=== PATIENT | male | born 1965 | race American Indian/Alaskan Native ===

== ENCOUNTER 2021-04-02 15:56 | Emergency (ER) | payer MEDICAID ==
[2021-04-02] MEDS ORDERED: SODIUM CHLORIDE 0.9% 1000 ML 1,000 ML IV ONE (17:02)
[2021-04-02 18:04] LABS: Hematocrit 33.9 % (35.5-45.6); Hemoglobin 10.8 gm/dl (11.8-15.2); Mean Corpuscular HGB Conc 32 % (32-34); Mean Corpuscular Volume 83 fl (84-94); Platelet Count 333 K/mm3 (140-440); Red Blood Count 4.07 M/mm3 (3.65-5.03); Red Cell Distribution Width 14.3 % (13.2-15.2)
[2021-04-02 18:25] LABS: Alanine Aminotransferase 20 units/L (7-56); Albumin 3.4 g/dL (3.9-5); Blood Urea Nitrogen 6 mg/dL (9-20); Calcium 8.7 mg/dL (8.4-10.2); Hemolysis Index 1
[2021-04-02 18:50] LABS: BUN/Creatinine Ratio 15
[2021-04-02 19:00] LABS: Band Neutrophils # (Manual) 0.1 K/mm3; RBC Morphology Normal; Total Cells Counted 100
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
[2021-04-02] MEDS ORDERED: ACETAMINOPHEN 500 MG TAB PO ONE (21:03)
[2021-04-02] MEDS ORDERED: oxyCODONE 5 MG TAB PO ONE (22:53)
[2021-04-03 03:11] VITALS: BP 138/85
== END 2021-04-03 01:30 | disposition home or self-care (01) ==
LOC: ED 15:56
DX: R73.9 Hyperglycemia, unspecified (principal); I10 Essential (primary) hypertension
CPT/HCPCS: 36415; 80053; 82805; 82962; 85007; 85025; 96360; 99284; J7030; Q0162

== ENCOUNTER 2021-04-06 13:18 | Emergency (ER) | payer MEDICAID ==
[2021-04-06 13:24] VITALS: BP 158/102
--- NOTE | 2021-04-06 14:36 | Emergency Department Report ---
ED Male HPI - General Chief complaint: Urogenital-Male Stated complaint: ABD PAIN, RECTUM PAIN,UNABLE TO URINATE SINCE YEST Time Seen by Provider: 04/06/21 14:27 Source: patient Mode of arrival: Ambulatory Limitations: No Limitations - History of Present Illness Initial comments: Patient presents with urinary retention. He states he has not been able to void in the last day. He came in for evaluation treatment because of suprapubic pain. He states that he feels bloated and distended. This is caused constipation. He has never had problems like this before. Has no fevers or chills per there is no cough congestion. No flank pain. There is no nausea or vomiting. He states that he did not have problems with urination previously. He has not been on any new medication. He does not know why this started. - Related Data Previous Rx's Medication Instructions Recorded Last Taken Type Phenazopyridine [Pyridium] 200 mg PO TID #9 tab 04/06/21 Unknown Rx cephALEXin [Keflex] 500 mg PO Q6HR #21 capsule 04/06/21 Unknown Rx Allergies Allergy/AdvReac Type Severity Reaction Status Date / Time No Known Allergies Allergy Unverified 04/02/21 16:10 ED Review of Systems ROS: Stated complaint: ABD PAIN, RECTUM PAIN,UNABLE TO URINATE SINCE YEST Other details as noted in HPI Comment: All other systems reviewed and negative Constitutional: denies: fever Eyes: denies: vision change ENT: denies: throat pain Respiratory: denies: cough Cardiovascular: denies: chest pain Endocrine: denies: unexplained weight loss Gastrointestinal: as per HPI Genitourinary: as per HPI Musculoskeletal: denies: back pain Skin: denies: rash Neurological: denies: headache Hematological/Lymphatic: denies: easy bruising ED Past Medical Hx - Past Medical History Previous Medical History?: No - Family History Family history: no significant - Medications Home Medications: Home Medications Medication Instructions Recorded Confirmed Last Taken Type Phenazopyridine [Pyridium] 200 mg PO TID #9 tab 04/06/21 Unknown Rx cephALEXin [Keflex] 500 mg PO Q6HR #21 capsule 04/06/21 Unknown Rx ED Physical Exam - General Limitations: No Limitations, Other (Pulse ox noted and normal) General appearance: alert, in distress (Moderate discomfort) - Head Head exam: Present: atraumatic, normocephalic - Eye Eye exam: Present: normal appearance, EOMI - ENT ENT exam: Present: normal orophraynx, normal external ear exam - Neck Neck exam: Present: normal inspection. Absent: meningismus - Respiratory Respiratory exam: Present: normal lung sounds bilaterally. Absent: respiratory distress - Cardiovascular Cardiovascular Exam: Present: normal rhythm, tachycardia - GI/Abdominal GI/Abdominal exam: Present: soft, tenderness (Suprapubic). Absent: guarding, rebound - Extremities Exam Extremities exam: Present: normal capillary refill - Back Exam Back exam: Absent: CVA tenderness (R), CVA tenderness (L) - Neurological Exam Neurological exam: Present: alert, oriented X3, CN II-XII intact, normal gait - Psychiatric Psychiatric exam: Present: normal affect, normal mood - Skin Skin exam: Present: warm, dry ED Course Vital Signs 04/06/21 13:23 Temperature 98.4 F Pulse Rate 102 H Respiratory 18 Rate Blood Pressure 158/102 [Right] O2 Sat by Pulse 98 Oximetry - Reevaluation(s) Reevaluation #1: 04/06/21 14:36 Umana catheter with lidocaine was ordered. Old records reviewed. Reevaluation #2: 04/06/21 16:41 Patient was not in urinary retention. Abdominal series was ordered. UA is still pending. Reevaluation #3: 04/06/21 17:56 UA and x-ray were noted. Patient was discharged. ED Medical Decision Making - Radiology Data Radiology results: report reviewed - Medical Decision Making Patient presented with lower abdominal pain and urinary frequency. He was found to have urinary tract infection. There is no evidence of urinary retention. Patient was treated empirically and symptomatically. There is no bowel obstruction. He does not have evidence of free air or perforation. He does not appear to be septic or toxic. Patient does not have blood in the urine. He does have glucose in the urine and he can follow-up with his regular doctor to check on the glucose in the urine. He does not appear to be profoundly dehydrated. He is not tachycardic or tachypneic. I do not believe this would represent DKA. Critical Care Time: No Critical care attestation.: If time is entered above; I have spent that time in minutes in the direct care of this critically ill patient, excluding procedure time. ED Disposition Clinical Impression: Cystitis, Glucosuria Disposition: HOME / SELF CARE / HOMELESS Is pt being admited?: No Condition: Stable Instructions: Urodynamic Testing, [id number] Additional Instructions: Drink plenty water. Avoid carbohydrates. Return for problems. Take the antibiotics. Follow-up with your regular doctor for recheck and further management. If you do not have a regular doctor, follow-up with the referral physician. Prescriptions: cephALEXin [Keflex] 500 mg PO Q6HR #21 capsule Phenazopyridine [Pyridium] 200 mg PO TID #9 tab Referrals: PRIMARY CAREMD [Primary Care Provider] - 3-5 Days BANDAR PHELPS MD [Staff Physician] - 3-5 Days
[2021-04-06] MEDS ORDERED: LIDOCAINE 2% UROJECT 10 ML JELLY UR ONE (15:00)
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
[2021-04-06 17:50] LABS: Bacteria,Urine 1+ /HPF (Negative); Bilirubin,Urine NEG (Negative); Blood,Urine MOD (Negative); Color,Urine Yellow (Yellow); Urobilinogen,Urine < 2.0 mg/dL (<2.0)
[2021-04-06 17:51] LABS: WBC,Urine > 182.0 /HPF (0.0-6.0)
[2021-04-06] MEDS ORDERED: cephALEXin 500 MG CAP PO ONE (17:55)
== END 2021-04-06 18:12 | disposition home or self-care (01) ==
LOC: ED 13:18
DX: N30.90 Cystitis, unspecified without hematuria (principal); R81 Glycosuria
CPT/HCPCS: 74022; 81001; 99283

== ENCOUNTER 2021-04-15 11:10 | Emergency (ER) | payer MEDICAID ==
[2021-04-15 11:15] VITALS: BP 149/117
--- NOTE | 2021-04-15 12:46 | Emergency Department Report ---
ED Extremity Problem HPI - General Chief complaint: Extremity Problem,Nontraumatic Time Seen by Provider: 04/15/21 12:19 Source: patient, EMS Mode of arrival: Stretcher Limitations: No Limitations - History of Present Illness Initial comments: 56-year-old -British male with past medical history of diabetes, lichen planus and hypertension presents to the ER today with complaints of bilateral foot pain, left worse than right. Patient states that has been having pain mainly to the plantar aspect of both feet for the past 2 to 3 days. Patient states that he lives at a personal long-term but he does admit that he do a lot of walking. He denies any injury to his feet recently. He states that they have been swelling. He denies any apparent erythema or bruising to the feet. He reports no associated chest pain or shortness of breath. He states that he has been taking Tylenol for the pain without much relief. He states that he has been compliant with his diabetic medication and has been checking his sugar and has been "all right". MD Complaint: joint swelling, joint paint -: days(s) (2-3) Severity scale (0 -10): 10 - Related Data Previous Rx's Medication Instructions Recorded Last Taken Type Phenazopyridine [Pyridium] 200 mg PO TID #9 tab 04/06/21 Unknown Rx cephALEXin [Keflex] 500 mg PO Q6HR #21 capsule 04/06/21 Unknown Rx Diclofenac 1% [Diclofenac 1% 1 applic TP QID #100 gm 04/15/21 Unknown Rx topical gel] traMADoL [Ultram] 50 mg PO Q4HR PRN #10 tablet 04/15/21 Unknown Rx Allergies Allergy/AdvReac Type Severity Reaction Status Date / Time No Known Allergies Allergy Unverified 04/15/21 11:15 ED Review of Systems ROS: Stated complaint: Other details as noted in HPI Comment: All other systems reviewed and negative Constitutional: denies: chills, fever Eyes: denies: eye pain, eye discharge, vision change ENT: denies: ear pain, throat pain Respiratory: denies: cough, shortness of breath, SOB with exertion, SOB at rest, wheezing Cardiovascular: denies: chest pain, palpitations Gastrointestinal: denies: abdominal pain, nausea, vomiting, diarrhea, constipation, hematemesis, melena, hematochezia Genitourinary: denies: urgency, dysuria Musculoskeletal: joint swelling, arthralgia. denies: back pain Skin: denies: rash, lesions, change in color, change in hair/nails, pruritus Neurological: denies: headache, weakness, numbness, paresthesias, confusion, abnormal gait, vertigo Psychiatric: denies: anxiety, depression, auditory hallucinations, visual hallucinations, homicidal thoughts ED Past Medical Hx - Past Medical History Previous Medical History?: Yes Hx Hypertension: Yes Hx Diabetes: Yes (TYPE II) Additional medical history: CHRONIC PAIN - Medications Home Medications: Home Medications Medication Instructions Recorded Confirmed Last Taken Type Phenazopyridine [Pyridium] 200 mg PO TID #9 tab 04/06/21 Unknown Rx cephALEXin [Keflex] 500 mg PO Q6HR #21 capsule 04/06/21 Unknown Rx Diclofenac 1% [Diclofenac 1% 1 applic TP QID #100 gm 04/15/21 Unknown Rx topical gel] traMADoL [Ultram] 50 mg PO Q4HR PRN #10 tablet 04/15/21 Unknown Rx ED Physical Exam - General Limitations: No Limitations General appearance: alert, in no apparent distress, other (Disheveled appearing) - Head Head exam: Present: atraumatic, normocephalic, normal inspection - Eye Eye exam: Present: normal appearance, PERRL, EOMI Pupils: Present: normal accommodation - Respiratory Respiratory exam: Present: normal lung sounds bilaterally. Absent: respiratory distress, wheezes, rales, rhonchi - Cardiovascular Cardiovascular Exam: Present: regular rate, normal rhythm, normal heart sounds - GI/Abdominal GI/Abdominal exam: Present: soft. Absent: distended, tenderness, guarding, rebound - Extremities Exam Extremities exam: Present: full ROM, tenderness (Tenderness to palpation to the plantar aspect of both feet, the left more so than the right. ), normal capillary refill (and Dorsalis pedis pulse and posterior tibialis pulses normal and equal bilaterally), joint swelling (Mild swelling noted about the ankles and dorsal foot bilaterally.), other ( Patient does have thickened hyperpigmented toenails. Chronically appear lichen planus rash noted bilateral feet and lower extremity without signs of infection; no erythema or bruising. Patient has full range of motion of his toes, ankle and knees. ). Absent: pedal edema - Neurological Exam Neurological exam: Present: alert, oriented X3, CN II-XII intact, normal gait. Absent: motor sensory deficit - Psychiatric Psychiatric exam: Present: normal affect, normal mood - Skin Skin exam: Present: intact ED Course Vital Signs 04/15/21 11:12 Temperature 99.0 F Pulse Rate 98 H Respiratory 16 Rate Blood Pressure 149/117 [Left] O2 Sat by Pulse 98 Oximetry ED Medical Decision Making - Medical Decision Making 56-year-old -British male with past medical history of diabetes, lichen planus and hypertension presents to the ER today with complaints of bilateral foot pain, left worse than right. Patient states that has been having pain mainly to the plantar aspect of both feet for the past 2 to 3 days. Patient states that he lives at a personal long-term but he does admit that he do a lot of walking. He denies any injury to his feet recently. He states that they have been swelling. He denies any apparent erythema or bruising to the feet. He reports no associated chest pain or shortness of breath. He states that he has been taking Tylenol for the pain without much relief. He states that he has been compliant with his diabetic medication and has been checking his sugar and has been "all right". 1253: Examination patient feet does not suggest septic joint, significant wound infection, cellulitis, acute arterial occlusion, and I also do not suspect DVT as patient has no current risk factors for DVT, nor does this appears related to congestive heart failure or any other acute emergent conditions warranting testing at this time. Patient will need to follow-up with podiatry good foot care. He'll be given medication to help his pain. Recommend that he elevates his foot as often as possible. He is not toxic or ill-appearing. He is neurologically intact. He is hemodynamically stable. Patient stable at time of discharge. Critical care attestation.: If time is entered above; I have spent that time in minutes in the direct care of this critically ill patient, excluding procedure time. ED Disposition Clinical Impression: Foot pain, bilateral Disposition: HOME / SELF CARE / HOMELESS Is pt being admited?: No Does the pt Need Aspirin: No Condition: Stable Instructions: Foot Pain Additional Instructions: I recommend that you follow-up with the mine car mechanic listed on your discharge instructions with your PCP for further evaluation of your foot pain. Take the tramadol as prescribed to help your pain. Elevate your foot as often as possible. Return to the ER if any symptoms worsens in any way. Prescriptions: Diclofenac 1% [Diclofenac 1% topical gel] 1 applic TP QID #100 gm traMADoL [Ultram] 50 mg PO Q4HR PRN #10 tablet PRN Reason: Pain Referrals: NBA KIM DPM [Staff Physician] - 3-5 Days Time of Disposition: 12:49
[2021-04-15] MEDS ORDERED: traMADol 50 MG TAB PO ONE (12:47)
== END 2021-04-15 14:33 | disposition home or self-care (01) ==
LOC: ED 11:10
DX: M79.671 Pain in right foot (principal); M79.672 Pain in left foot; I10 Essential (primary) hypertension; E11.9 Type 2 diabetes mellitus without complications; G89.29 Other chronic pain; Z79.899 Other long term (current) drug therapy
CPT/HCPCS: 99283

== ENCOUNTER 2021-08-08 19:18 | Emergency (ER) | payer MEDICAID ==
[2021-08-09] MEDS ORDERED: GABAPENTIN 100 MG CAP PO ONE (07:56)
[2021-08-09] MEDS ORDERED: traMADol 50 MG TAB PO ONE (07:56)
--- NOTE | 2021-08-09 08:00 | Emergency Department Report ---
ED Rash HPI - HPI Chief Complaint: Skin/Abscess/Foreign Body Stated Complaint: LESIONS Time Seen by Provider: 08/09/21 07:55 Location: Upper Extremities Suspected Cause: Other Rash Symptoms: Yes Itching, No Facial Swelling, No Tongue/Oral Swelling, No Breathing Difficulties, No Choking Sensation, No Wheezing/Dyspnea, No Peeling, No Blistering, No Fever, No Lightheaded, No Malaise, No Myalgias Severity: severe Other History: 56-year-old male comes to the ER last night, planing of stinging and itching of his upper extremity chronic lesions. He states that he developed these lesions from lisinopril. He states in 2014 he had a stroke and when he came out of, he had the lesions. He had been told it was from the lisinopril. They are all over his body but worse on his arms. He comes in with itching and stinging of the lesions tonight. He has no drainage. There is no fever. He has no hypotension or tachycardia. He states that he lives in a senior care. He is ambulatory to fast track in no acute distress. He cannot remember the name of his doctor. He does see a doctor in [place] because he was recently diagnosed with a left lower extremity blood clot. He states that he takes Eliquis for this. Patient denies any chest pain or shortness of breath. He is ambulatory without difficulty. He has no swelling of his extremities. Other home medications include gabapentin home, a steroid cream and tramadol. ED Review of Systems ROS: Stated complaint: LESIONS Other details as noted in HPI Comment: All other systems reviewed and negative ED Past Medical Hx - Past Medical History Hx Hypertension: Yes Hx CVA: Yes Hx Diabetes: Yes (TYPE II) Hx Deep Vein Thrombosis: Yes (Left lower extremity) Additional medical history: CHRONIC PAIN, DVT left lower extremity - Surgical History Past Surgical History?: Yes - Family History Family history: no significant - Social History Smoking Status: Never Smoker Substance Use Type: Alcohol - Medications Home Medications: Home Medications Medication Instructions Recorded Confirmed Last Taken Type Phenazopyridine [Pyridium] 200 mg PO TID #9 tab 04/06/21 Unknown Rx cephALEXin [Keflex] 500 mg PO Q6HR #21 capsule 04/06/21 Unknown Rx Diclofenac 1% [Diclofenac 1% 1 applic TP QID #100 gm 04/15/21 Unknown Rx topical gel] traMADoL [Ultram] 50 mg PO Q4HR PRN #10 tablet 04/15/21 Unknown Rx Rash Exam - Exam General: Vital signs noted. No distress. Alert and acting appropriately. Heart rate on provider exam 88. HEENT: No Periorbital Edema, No Conjuctival Injection, No Chemosis, No Perioral Edema, No Tongue Edema, No Uvular Edema, No Compromised Airway, No Drooling Lungs: Yes Good Air Exchange (Normal Breath Sounds), No Wheezes, No Ronchi, No Stridor, No Cough, No Labored Respirations, No Retractions, No Use of Accessory Muscles, No Other Abnormal Lung Sounds Heart: Yes Regular, No Murmur Skin: No Other Other: Positive: Abdomen Normal, Neurologic Normal, Musculoskeletal Normal ED Course Vital Signs 08/08/21 20:30 Temperature 99.5 F Pulse Rate 105 H Respiratory 18 Rate Blood Pressure 132/91 O2 Sat by Pulse 97 Oximetry ED Medical Decision Making - Medical Decision Making Vital Signs 08/08/21 20:30 Temperature 99.5 F Pulse Rate 105 H Respiratory 18 Rate Blood Pressure 132/91 O2 Sat by Pulse 97 Oximetry Wound care provided. Wounds cleaned with Betadine and saline, Vaseline applied and arm was wrapped in gauze. Patient medicated with tramadol and gabapentin. There is no drainage or redness associated with the rash. Patient is afebrile. Not concerned for infection. Patient educated on discharge plan of care including diet, activity, medications and follow-up with his PCP. He is asked for refill of his tramadol however, I told him that we do not give refills in the emergency room. He will have to see his PCP for that. When asked how he is getting home he says his sister told him she would call him an Uber. Patient discharged home with discharge plan of care including diet, medications, activity and follow-up. He verbalizes understanding. - Differential Diagnosis Acute on chronic rash Critical care attestation.: If time is entered above; I have spent that time in minutes in the direct care of this critically ill patient, excluding procedure time. ED Disposition Clinical Impression: Chronic pruritic rash in adult Disposition: HOME / SELF CARE / HOMELESS Is pt being admited?: No Does the pt Need Aspirin: No Condition: Stable Instructions: Wound Care, Adult Additional Instructions: Wound care as instructed. Continue home medications. Follow-up with your primary care for refill of your tramadol. Referrals: BROOK HUSSEIN MD [Staff Physician] - 3-5 Days Time of Disposition: 08:01
[2021-08-09 08:24] VITALS: BP 137/94
== END 2021-08-09 08:23 | disposition home or self-care (01) ==
LOC: ED 19:18
DX: L29.8 Other pruritus (principal); I10 Essential (primary) hypertension; E11.9 Type 2 diabetes mellitus without complications; G89.29 Other chronic pain
CPT/HCPCS: 99282

== ENCOUNTER 2021-08-22 21:24 | Emergency (ER) | payer MEDICAID ==
[2021-08-22 22:04] VITALS: BP 152/98
[2021-08-23] MEDS ORDERED: ACETAMINOPHEN 500 MG TAB PO ONE (04:56)
[2021-08-23] MEDS: IBUPROFEN 600 MG TAB PO ONE ×2 (05:02→05:04)
--- NOTE | 2021-08-23 05:24 | Emergency Department Report ---
ED General Adult HPI - General Chief complaint: Allergic Reaction Stated complaint: ALLERGIC REACTION Source: patient, EMS Mode of arrival: Stretcher Limitations: No Limitations - History of Present Illness Initial comments: Patient is a 56-year-old -Chinese male with a history of hypertension, CVA, due to chronic ulcer [id number] diabetes, DVT and chronic pain due to chronic ulcers in upper and lower extremities bilaterally presents to the ED with complaint of acute exacerbation of his chronic pain for the last 1 week. Patient states that he has been taking Tylenol as needed for pain with no relief. Patient denies fever, chills, nausea and vomiting, dizziness, syncope, cough, traumatic injury, heavy lifting, chest pain or shortness of breath, num bness and tingling or weakness of lower and upper extremities bilaterally. MD Complaint: BILATERAL ARM AND LEG PAIN -: Gradual, month(s) (6) Location: upper extremity (Bilateral upper extremities due to chronic healing wounds), lower extremity (Bilateral lower extremities due to chronic wounds) Radiation: non-radiation Severity scale (0 -10): 6 Quality: aching, sharp Consistency: constant Improves with: none Worsens with: movement Associated Symptoms: denies other symptoms, other (Chronic wounds on upper and lower extremities). denies: confusion, chest pain, cough, diaphoresis, fever/chills, headaches, loss of appetite, malaise, nausea/vomiting, rash, seizure, shortness of breath, syncope, weakness Treatments Prior to Arrival: none - Related Data Previous Rx's Medication Instructions Recorded Last Taken Type Phenazopyridine [Pyridium] 200 mg PO TID #9 tab 04/06/21 Unknown Rx cephALEXin [Keflex] 500 mg PO Q6HR #21 capsule 04/06/21 Unknown Rx Diclofenac 1% [Diclofenac 1% 1 applic TP QID #100 gm 04/15/21 Unknown Rx topical gel] Acetaminophen [Tylenol] 500 mg PO Q6HR PRN #40 tablet 08/23/21 Unknown Rx Gabapentin 300 mg PO BID #90 cap 08/23/21 Unknown Rx traMADoL [Ultram 50 MG tab] 50 mg PO Q4HR PRN #10 tablet 08/23/21 Unknown Rx Allergies Allergy/AdvReac Type Severity Reaction Status Date / Time ibuprofen AdvReac Severe Swelling Verified 08/23/21 05:05 lisinopril AdvReac Intermediate Swelling Verified 08/23/21 05:05 ED Review of Systems ROS: Stated complaint: ALLERGIC REACTION Other details as noted in HPI Constitutional: denies: chills, fever Eyes: denies: eye pain, eye discharge, vision change ENT: denies: ear pain, throat pain Respiratory: denies: cough, shortness of breath, wheezing Cardiovascular: denies: chest pain, palpitations Endocrine: no symptoms reported Gastrointestinal: denies: abdominal pain, nausea, diarrhea Genitourinary: denies: urgency, dysuria Musculoskeletal: arthralgia (Bilateral upper and lower extremity pain). denies: back pain, joint swelling Skin: other (Diffusely with pain). denies: rash, lesions Neurological: denies: headache, weakness, paresthesias Psychiatric: denies: anxiety, depression Hematological/Lymphatic: denies: easy bleeding, easy bruising ED Past Medical Hx - Past Medical History Hx Hypertension: Yes Hx CVA: Yes Hx Diabetes: Yes (TYPE II) Hx Deep Vein Thrombosis: Yes (Left lower extremity) Additional medical history: CHRONIC PAIN, DVT left lower extremity - Social History Smoking Status: Never Smoker Substance Use Type: Alcohol - Medications Home Medications: Home Medications Medication Instructions Recorded Confirmed Last Taken Type Phenazopyridine [Pyridium] 200 mg PO TID #9 tab 04/06/21 Unknown Rx cephALEXin [Keflex] 500 mg PO Q6HR #21 capsule 04/06/21 Unknown Rx Diclofenac 1% [Diclofenac 1% 1 applic TP QID #100 gm 04/15/21 Unknown Rx topical gel] Acetaminophen [Tylenol] 500 mg PO Q6HR PRN #40 tablet 08/23/21 Unknown Rx Gabapentin 300 mg PO BID #90 cap 08/23/21 Unknown Rx traMADoL [Ultram 50 MG tab] 50 mg PO Q4HR PRN #10 tablet 08/23/21 Unknown Rx ED Physical Exam - General Limitations: No Limitations General appearance: alert, in no apparent distress - Head Head exam: Present: atraumatic, normocephalic, normal inspection - Eye Eye exam: Present: normal appearance, PERRL, EOMI Pupils: Present: normal accommodation - ENT ENT exam: Present: normal exam, normal orophraynx, mucous membranes moist, TM's normal bilaterally, normal external ear exam - Neck Neck exam: Present: normal inspection, full ROM. Absent: tenderness - Respiratory Respiratory exam: Present: normal lung sounds bilaterally. Absent: respiratory distress, wheezes, rales, rhonchi, chest wall tenderness, accessory muscle use, decreased breath sounds, prolonged expiratory - Cardiovascular Cardiovascular Exam: Present: normal rhythm, tachycardia, normal heart sounds. Absent: systolic murmur, diastolic murmur, rubs, gallop - GI/Abdominal GI/Abdominal exam: Present: soft, normal bowel sounds. Absent: tenderness, guarding, rebound, hyperactive bowel sounds, hypoactive bowel sounds, organomegaly, mass - Extremities Exam Extremities exam: Present: normal inspection, full ROM, tenderness (Diffuse bilateral upper and lower extremity tenderness due to chronic ulcerated wounds), normal capillary refill. Absent: pedal edema, joint swelling, calf tenderness - Back Exam Back exam: Present: normal inspection, full ROM. Absent: tenderness, CVA tenderness (R), CVA tenderness (L), muscle spasm, paraspinal tenderness, vertebral tenderness - Neurological Exam Neurological exam: Present: alert, oriented X3, CN II-XII intact, normal gait, reflexes normal - Psychiatric Psychiatric exam: Present: normal affect, normal mood - Skin Skin exam: Present: warm, dry, intact, normal color, other (Chronic ulcerated wounds on upper and lower extremities). Absent: rash ED Course Vital Signs 08/22/21 22:02 Temperature 98.5 F Pulse Rate 100 H Respiratory 18 Rate Blood Pressure 152/98 [Right] O2 Sat by Pulse 100 Oximetry ED Medical Decision Making - Medical Decision Making This is a 56-year-old -Chinese male with a history of hypertension, CVA, due to chronic ulcer [id number] diabetes, DVT and chronic pain due to chronic ulcers in upper and lower extremities bilaterally presents to the ED with complaint of acute exacerbation of his chronic pain for the last 1 week. Patient states that he has been taking Tylenol as needed for pain with no relief. In the ED, patient is alert and oriented x3 and is not in any distress. Patient was treated for pain in the ED. Patient was discharged home on pain medications and advised to follow-up with his primary care physician in 7 to 10 days for reevaluation. Patient was advised return to the ED immediately if symptoms get worse. - Differential Diagnosis Chronic pain; chronic ulcers; scar tissues Critical care attestation.: If time is entered above; I have spent that time in minutes in the direct care of this critically ill patient, excluding procedure time. ED Disposition Clinical Impression: Chronic pain disorder Chronic ulcer skin Qualifiers: Non-pressure ulcer stage: unspecified non-pressure ulcer stage Qualified Code(s): L98.499 - Non-pressure chronic ulcer of skin of other sites with unspecified severity Disposition: HOME / SELF CARE / HOMELESS Is pt being admited?: No Does the pt Need Aspirin: No Condition: Stable Instructions: Pain Medicine Instructions, [id number], Chronic Pain, Adult Additional Instructions: Take medication with food, drink plenty of fluids and follow-up with your primary care physician in 7 to 10 days for reevaluation. Return to the ED immediately if symptoms get worse Prescriptions: Acetaminophen [Tylenol] 500 mg PO Q6HR PRN #40 tablet PRN Reason: Pain , Severe (7-10) Gabapentin 300 mg PO BID #90 cap traMADoL [Ultram 50 MG tab] 50 mg PO Q4HR PRN #10 tablet PRN Reason: Pain Referrals: [facility] [Provider Group] - 7-10 days Time of Disposition: 05:25 Print Language: TELUGU
== END 2021-08-23 06:00 | disposition home or self-care (01) ==
LOC: ED 21:24
DX: G89.4 Chronic pain syndrome (principal); L98.499 Non-pressure chronic ulcer of skin of other sites with unspecified severity; I10 Essential (primary) hypertension; E11.8 Type 2 diabetes mellitus with unspecified complications; I82.502 Chronic embolism and thrombosis of unspecified deep veins of left lower extremity; Z86.73 Personal history of transient ischemic attack (TIA), and cerebral infarction without residual deficits; Z88.6 Allergy status to analgesic agent; Z88.8 Allergy status to other drugs, medicaments and biological substances
CPT/HCPCS: 99283

== ENCOUNTER 2021-09-30 19:42 | Emergency (ER) | payer MEDICAID ==
[2021-10-01 03:52] VITALS: BP 152/100
== END 2021-10-01 07:00 | disposition left against medical advice (07) ==
LOC: ED 19:42
DX: R52 Pain, unspecified (principal); Z53.21 Procedure and treatment not carried out due to patient leaving prior to being seen by health care provider

== ENCOUNTER 2021-10-14 22:20 | Emergency (ER) | payer MEDICAID ==
[2021-10-14 22:36] VITALS: BP 150/90
[2021-10-15] MEDS ORDERED: HYDROcodone/ACETAMINOPHEN 5-325 MG TAB PO ONE (04:44)
--- NOTE | 2021-10-15 04:53 | Emergency Department Report ---
ED General Adult HPI - General Chief complaint: Pain General Stated complaint: PAIN X 5YEARS Time Seen by Provider: 10/15/21 04:43 Source: patient, EMS Mode of arrival: Stretcher Limitations: Physical Limitation - History of Present Illness Initial comments: From [facility]. Reporting chronic pain X 5 years. Ran out of Tyelenol. -: year(s) Location: head, abdomen, upper extremity, lower extremity Radiation: non-radiation Severity scale (0 -10): 3 Quality: aching Consistency: intermittent Improves with: none - Related Data Previous Rx's Medication Instructions Recorded Last Taken Type Phenazopyridine [Pyridium] 200 mg PO TID #9 tab 04/06/21 Unknown Rx cephALEXin [Keflex] 500 mg PO Q6HR #21 capsule 04/06/21 Unknown Rx Diclofenac 1% [Diclofenac 1% 1 applic TP QID #100 gm 04/15/21 Unknown Rx topical gel] Acetaminophen [Tylenol] 500 mg PO Q6HR PRN #40 tablet 08/23/21 Unknown Rx Gabapentin 300 mg PO BID #90 cap 08/23/21 Unknown Rx traMADoL [Ultram 50 MG tab] 50 mg PO Q4HR PRN #10 tablet 08/23/21 Unknown Rx Allergies Allergy/AdvReac Type Severity Reaction Status Date / Time ibuprofen AdvReac Severe Swelling Verified 08/23/21 05:05 lisinopril AdvReac Intermediate Swelling Verified 08/23/21 05:05 ED Review of Systems ROS: Stated complaint: PAIN X 5YEARS Other details as noted in HPI Constitutional: denies: chills, fever Eyes: denies: eye pain, eye discharge, vision change ENT: denies: ear pain, throat pain Respiratory: denies: cough, shortness of breath, wheezing Cardiovascular: denies: chest pain, palpitations Endocrine: no symptoms reported Gastrointestinal: denies: abdominal pain, nausea, diarrhea Genitourinary: denies: urgency, dysuria Musculoskeletal: denies: back pain, joint swelling, arthralgia Skin: denies: rash, lesions Neurological: denies: headache, weakness, paresthesias Psychiatric: denies: anxiety, depression Hematological/Lymphatic: denies: easy bleeding, easy bruising ED Past Medical Hx - Past Medical History Previous Medical History?: Yes Hx Hypertension: Yes Hx CVA: Yes Hx Diabetes: Yes (TYPE II) Hx Deep Vein Thrombosis: Yes (Left lower extremity) Additional medical history: CHRONIC PAIN, DVT left lower extremity - Surgical History Past Surgical History?: No - Social History Smoking Status: Current Every Day Smoker Substance Use Type: None - Medications Home Medications: Home Medications Medication Instructions Recorded Confirmed Last Taken Type Phenazopyridine [Pyridium] 200 mg PO TID #9 tab 04/06/21 Unknown Rx cephALEXin [Keflex] 500 mg PO Q6HR #21 capsule 04/06/21 Unknown Rx Diclofenac 1% [Diclofenac 1% 1 applic TP QID #100 gm 04/15/21 Unknown Rx topical gel] Acetaminophen [Tylenol] 500 mg PO Q6HR PRN #40 tablet 08/23/21 Unknown Rx Gabapentin 300 mg PO BID #90 cap 08/23/21 Unknown Rx traMADoL [Ultram 50 MG tab] 50 mg PO Q4HR PRN #10 tablet 08/23/21 Unknown Rx ED Physical Exam - General Limitations: Physical Limitation General appearance: alert - Head Head exam: Present: atraumatic, normocephalic - Eye Eye exam: Present: normal appearance - ENT ENT exam: Present: mucous membranes moist - Neck Neck exam: Present: normal inspection - Respiratory Respiratory exam: Present: normal lung sounds bilaterally. Absent: respiratory distress - Cardiovascular Cardiovascular Exam: Present: regular rate, normal rhythm. Absent: systolic murmur, diastolic murmur, rubs, gallop - GI/Abdominal GI/Abdominal exam: Present: soft, normal bowel sounds - Rectal Rectal exam: Present: deferred - Extremities Exam Extremities exam: Present: normal inspection - Back Exam Back exam: Present: normal inspection - Neurological Exam Neurological exam: Present: alert, oriented X3 - Psychiatric Psychiatric exam: Present: normal affect, normal mood - Skin Skin exam: Present: vesicles, other (chornic ulcers all over ). Absent: rash ED Course Vital Signs 10/14/21 22:28 Temperature 98 F Pulse Rate 90 Respiratory 18 Rate Blood Pressure 150/90 O2 Sat by Pulse 99 Oximetry Critical care attestation.: If time is entered above; I have spent that time in minutes in the direct care of this critically ill patient, excluding procedure time. ED Disposition Clinical Impression: Chronic pain disorder Disposition: HOME / SELF CARE / HOMELESS Is pt being admited?: No Does the pt Need Aspirin: No Condition: Stable Instructions: Chronic Pain, Adult
== END 2021-10-15 06:28 | disposition home or self-care (01) ==
LOC: ED 22:20
DX: G89.4 Chronic pain syndrome (principal); R51.9 Headache, unspecified; M79.604 Pain in right leg; M79.605 Pain in left leg; M79.642 Pain in left hand; M79.641 Pain in right hand; I10 Essential (primary) hypertension; Z86.73 Personal history of transient ischemic attack (TIA), and cerebral infarction without residual deficits; E11.9 Type 2 diabetes mellitus without complications; I82.402 Acute embolism and thrombosis of unspecified deep veins of left lower extremity; F17.290 Nicotine dependence, other tobacco product, uncomplicated; Z88.6 Allergy status to analgesic agent; Z88.8 Allergy status to other drugs, medicaments and biological substances
CPT/HCPCS: 99283